=== PATIENT | male | born 1965 | race Caucasian/White ===

== ENCOUNTER 2018-10-26 11:39 | Emergency (ER) | payer MEDICAID ==
[2018-10-26 11:44] VITALS: BP 145/82
--- NOTE | 2018-10-26 11:54 | EDPHY ---
H & P Stated Complaint: BP with anxiety, hasn't been sleeping, feels like anxiety is getting worse Time Seen by Provider: 10/26/18 11:54 HPI/ROS: HPI: This is a 53-year-old male who presents with Chief Complaint: Grief, panic attack, increased anxiety Location: Psychiatric Quality:Grief, panic attack, increased anxiety Duration: 2 days Signs and Symptoms: no auditory hallucinations, no visual hallucinations, no suicidal ideation with a plan, no homicidal ideation, no paranoia Timing: Worse this morning Severity: Moderate Context: Patient has a history of bipolar disorder-mix type, anxiety presents with 2 day history of increased anxiety and having a panic attack this morning. Patient reports that he took clonazepam 0.5 mg 1-2 hours prior to arrival to the emergency room with no relief of symptoms. Patient's grandmother 2 days ago and he has been " having a hard time." He is accompanied by good friend that has been staying with him. He has regular outpatient counseling and psychiatric services. Reports compliance on psychiatric medications. Denies suicidal ideation, homicidal ideation and no previous suicide attempts. Patient complains of excessive crying, grief, insomnia. Modifying Factors: See above Comment: ROS: A comprehensive 10 system review of systems is otherwise negative aside from elements mentioned in the history of present illness. MEDICAL/SURGICAL/SOCIAL HISTORY: Medical history: Bipolar disorder, mixed type. 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 Denies drug or tobacco use. Drinks alcohol socially. Family history noncontributory. CONSTITUTIONAL: Tearful middle-aged white male, nontoxic-appearing, awake and alert, no obvious distress HEENT: Atraumatic and normocephalic, PERRL, EOMI. Nares patent; no rhinorrhea; no nasal mucosal edema. Tympanic membranes clear. Oropharynx clear, no exudate and moist pink mucosa. Airway patent. No lymphadenopathy. No meningismus. Cardiovascular: Normal S1/S2, regular rate, regular rhythm, without murmur rub or gallop. PULMONARY/CHEST: Symmetrical and nontender. Clear to auscultation bilaterally. Good air movement. No accessory muscle usage. ABDOMEN: Soft, nondistended, nontender, no rebound, no guarding, no peritoneal signs, no masses or organomegaly. No CVAT. EXTREMITIES: 2/2 pulses, strength 5/5, no deformities, no clubbing, no cyanosis or edema. NEUROLOGICAL: no focal neuro deficits. GCS 15. SKIN: Warm and dry, no erythema. no rash. Good capillary refill. PSYCH: Good eye contact, no flight of ideas, organized thought process, good insight and judgment, no auditory hallucinations, no visual hallucinations, no suicidal ideation with a plan, no homicidal ideation, no paranoia Source: Patient Exam Limitations: No limitations - Personal History Current Tetanus/Diphtheria Vaccine: Unsure Current Tetanus Diphtheria and Acellular Pertussis (TDAP): Unsure - Medical/Surgical History Hx Asthma: No Hx Chronic Respiratory Disease: No Hx Diabetes: No Hx Cardiac Disease: No Hx Renal Disease: No Hx Cirrhosis: No Hx Alcoholism: No Hx HIV/AIDS: No Hx Splenectomy or Spleen Trauma: No Other PMH: pmh: bipolar. psh: none - Social History Smoking Status: Never smoked Constitutional: Initial Vital Signs Temperature (C) 36.7 C 10/26/18 11:41 Heart Rate 69 10/26/18 11:41 Respiratory Rate 14 10/26/18 11:41 Blood Pressure 145/82 H 10/26/18 11:41 O2 Sat (%) 96 10/26/18 11:41 O2 Delivery Mode Room Air Allergies/Adverse Reactions: No Known Allergies Allergy (Unverified 11/24/15 10:03) Home Medications: Medication Instructions Recorded Bupropion HCl Sr 1 tab DAILY 11/30/15 CLONAZEPAM 1 tab HS PRN 11/30/15 Latuda 1 tab HS 03/10/16 Metoprolol Succinate 1 tab HS 03/10/16 SIMVASTATIN 1 tab HS 03/10/16 Terbinafine 1 tab ONCE 03/10/16 Venlafaxine 75MG (*) 1 tab DAILY 03/10/16 Triazolam [Halcion 0.25MG (*)] 0.25 mg PO HS PRN #2 tab 10/26/18 Medical Decision Making ED Course/Re-evaluation: Vital signs reviewed and stable upon arrival. Patient does not meet M1 hold criteria. Has a good friend at bedside who contracts for his safety. Given Valium 5 mg in the ER with near complete relief of symptoms. I did dispense #2 Halcion for insomnia. Follow up with behavioral health. This patient was seen under the supervision of my secondary supervising physician. I evaluated and cared for this patient independently. Differential Diagnosis: Differential diagnosis includes but is not limited to major depression, anxiety disorder, schizophrenia, bipolar disorder, intoxicant use, suicidal ideation, psychosis, sam. - Data Points Medications Given: Discontinued Medications Diazepam (Valium) 5 mg PO EDNOW ONE Stop: 10/26/18 12:01 Last Admin: 10/26/18 12:05 Dose: 5 mg Departure - Departure Disposition: Home, Routine, Self-Care Clinical Impression: Grief reaction, Panic attack due to exceptional stress Bipolar disorder (manic depression) Qualifiers: Active/Remission status: currently active Current bipolar episode type: mixed Current episode severity: moderate Qualified Code(s): F31.62 - Bipolar disorder , current episode mixed, moderate Condition: Good Instructions: Grief and Loss (ED), Insomnia (ED) Additional Instructions: Please take regular psychiatric medications as prescribed. Follow-up with primary care provider early next week as well as counselor. Take Halcion at night as needed for insomnia. Call 911 if you have thoughts of hurting or killing yourself or anyone else, or have any new or worsening symptoms that concern you. Referrals: Jamee Murphy PA [Primary Care Provider] - 2-3 days without fail Stand Alone Forms: Work Excuse Prescriptions: Triazolam [Halcion 0.25MG (*)] 0.25 mg PO HS PRN #2 tab PRN Reason: Sleep/Insomnia
[2018-10-26] MEDS ORDERED: DIAZEPAM 5 MG TAB PO ONE (12:00)
== END 2018-10-26 12:10 | disposition home or self-care (01) ==
DX: F43.20 Adjustment disorder, unspecified (principal); F43.0 Acute stress reaction; F31.62 Bipolar disorder, current episode mixed, moderate